=== PATIENT | female | born 1995 | race Caucasian/White ===

== ENCOUNTER 2017-06-30 22:54 | Emergency (ER) | payer OTHER ==
[~2017-06-30] VITALS: Ht 152.4 cm; Wt 58.1 kg
[2017-06-30] MEDS ORDERED: TUSICOF CAPLET1 EACH (22:59)
[2017-07-01] MEDS ORDERED: DUI500 PO (03:02)
== END 2017-07-01 03:12 | disposition home or self-care (01) ==
LOC: ER 22:54
DX: J11.1 Influenza due to unidentified influenza virus with other respiratory manifestations (principal)

== ENCOUNTER 2017-09-27 08:29 | Emergency (ER) | payer OTHER ==
[~2017-09-27] VITALS: Ht 152.4 cm; Wt 59.0 kg
[~2017-09-27 08:29] MED LIST: DUI500 PO; TUSICOF CAPLET1 EACH
== END 2017-09-27 12:21 | disposition home or self-care (01) ==
LOC: ER 08:29
DX: B34.9 Viral infection, unspecified (principal)

== ENCOUNTER 2024-03-02 09:50 | Inpatient (IN) | payer OTHER ==
[2024-03-02] VITALS (11 sets, daily range): BP systolic 91–128; BP diastolic 51–68
[~2024-03-02] VITALS: Ht 152.4 cm; Wt 78.0 kg
[2024-03-02] MEDS ORDERED: RINGERS SOLUTION,LACTATED 1,000 ML IV SCH (10:00)
[2024-03-02] MEDS ORDERED: PRENATAL TABLE1 EAC1 PO (10:03)
[2024-03-02] MEDS ORDERED: LOVENOX40 MG/0.4 SUBCUTANEO (10:04)
[2024-03-02] MEDS ORDERED: B-COMPLEX TR 11 EACH PO (10:07)
[2024-03-02 10:36] LABS: HEMATOCRIT 35.4 % (36.0-45.00); HEMOGLOBIN 12.2 g/dL (12.0-15.00); MEAN CELL VOLUME 85.2 fL (80.00-100.00); MEAN CORPUSCULAR HEMOGLOBIN 29.4 pg (27.00-32.0); MEAN CORPUSCULAR HGB CONC 34.4 g/dl (32.0-36.0); PLATELET COUNT 282 K/uL (150-450); RED BLOOD COUNT 4.16 M/uL (4.00-6.00); RED CELL DISTRIBUTION WIDTH 14.5 % (11.5-14.5)
[2024-03-02 10:43] LABS: INR < 0.93; PARTIAL THROMBOPLASTIN TIME 28.9 SECONDS (22.0-34.0)
[2024-03-02] MEDS ORDERED: MORPHINE SULFATE 4 MG/ML CARTRIDGE IV PRN (11:00)
[2024-03-02] MEDS ORDERED: FAMOTIDINE/PF 20 MG/2 ML VIAL IV PRN (11:00)
[2024-03-02 11:20] LABS: ALBUMIN 3.1 gm/dL (3.4-5.0); BILIRUBIN TOTAL 0.27 mg/dL (0.3-1.2); CALCIUM 8.9 mg/dL (8.5-10.1); CREATININE SERUM 0.41 mg/dL (0.55-1.02); GFR 186.09; GLOBULINA 3.7 G/DL (2.4-3.5); POTASSIUM 3.94 mEq/L (3.5-5.1); TOTAL PROTEIN 6.8 gm/dL (6.4-8.2)
[2024-03-02] MEDS ORDERED: OXYTOCIN 500 ML IV ONE (12:15)
[2024-03-02] MEDS ORDERED: ERYTHROMYCIN BASE OPHT 1GM EACH TUBE OP ONE ×2 (12:43→17:45)
[2024-03-02] MEDS ORDERED: OXYTOCIN 20 UNITS/1000ML RL PIGGYBAG IV ONE (12:44)
[2024-03-02] MEDS ORDERED: CHLORHEXIDINE GLUCONATE 120 ML BOTTLE TOP ONE (12:44)
[2024-03-02] MEDS ORDERED: LIDOCAINE HCL 1% 10ML VIAL ONE (12:44)
[2024-03-02] MEDS ORDERED: PROMETHAZINE HCL 25 MG/ML AMPUL ONE (14:18)
[2024-03-02] MEDS ORDERED: MEPERIDINE HCL/PF 50 MG/ML VIAL IV ONE (14:30)
[2024-03-02] MEDS ORDERED: PROMETHAZINE HCL 25 MG/ML AMPUL IV ONE (14:30)
[2024-03-02] MEDS ORDERED: IBUprofen 400 MG TABLET PO PRN (16:45)
[2024-03-02] MEDS ORDERED: OXYTOCIN 1,000 ML IV ONE (16:45)
[2024-03-02] MEDS ORDERED: CHLORHEXIDINE GLUCONATE 120 ML BOTTLE TOP SCH (16:45)
[2024-03-02] MEDS ORDERED: DOCUSATE SODIUM 100MG CAP PO SCH (17:00)
[2024-03-02] MEDS ORDERED: LIDOCAINE HCL 1% 10ML VIAL PERCUT ONE (17:45)
[2024-03-03] VITALS: BP 105/68
[2024-03-03 06:45] LABS: MEAN CELL VOLUME 87.7 fL (80.00-100.00); MEAN CORPUSCULAR HEMOGLOBIN 29.2 pg (27.00-32.0); MEAN CORPUSCULAR HGB CONC 33.3 g/dl (32.0-36.0); PLATELET COUNT 266 K/uL (150-450); RED BLOOD COUNT 3.42 M/uL (4.00-6.00); RED CELL DISTRIBUTION WIDTH 13.9 % (11.5-14.5)
[2024-03-03 07:56] VITALS: BP 106/69
[2024-03-03 13:23] VITALS: BP 109/79
[2024-03-03 18:19] VITALS: BP 100/61
[2024-03-04] VITALS: BP 114/74
[2024-03-04 07:48] VITALS: BP 119/60
[2024-03-04] MEDS ORDERED: LOVENOX40 MG/0.4 SUBCUTANEO (09:20)
== END 2024-03-04 15:13 | disposition home or self-care (01) | DRG 807 ==
LOC: LDR 09:50 → OB/GYN 17:43
PROVIDERS: ADMIT Obstetrics & Gynecology Gynecology; ATTEND Obstetrics & Gynecology Gynecology
PROC: 10E0XZZ Delivery of Products of Conception, External Approach (ICD-10-PCS; principal; 2024-03-02)
PROC: 0HQ9XZZ Repair Perineum Skin, External Approach (ICD-10-PCS; 2024-03-02)
PROC: 0UQG7ZZ Repair Vagina, Via Natural or Artificial Opening (ICD-10-PCS; 2024-03-02)
PROC: 4A1HXCZ Monitoring of Products of Conception, Cardiac Rate, External Approach (ICD-10-PCS; 2024-03-02)
DX: O70.1 Second degree perineal laceration during delivery (principal); Z37.0 Single live birth; Z3A.38 38 weeks gestation of pregnancy; Z20.822 Contact with and (suspected) exposure to COVID-19